=== PATIENT | male | born 1985 | race Caucasian/White ===

== ENCOUNTER 2019-06-13 19:16 | Emergency (ER) | payer OTHER ==
[~2019-06-13] VITALS: Ht 172.7 cm; Wt 104.3 kg
[2019-06-13] MEDS ORDERED: CHANTIX1 MG PO (19:29)
[2019-06-13] MEDS ORDERED: ZOFRAN ODT4 MG PO (20:49)
[2019-06-13] MEDS ORDERED: LORCET 5-325 M1 EACH PO (20:49)
[2019-06-13 21:03] VITALS: BP 148/85
== END 2019-06-13 21:04 | disposition home or self-care (01) ==
LOC: M.ERS 19:16
DX: S06.0X0A Concussion without loss of consciousness, initial encounter (principal); F17.210 Nicotine dependence, cigarettes, uncomplicated; Z88.8 Allergy status to other drugs, medicaments and biological substances; W51.XXXA Accidental striking against or bumped into by another person, initial encounter; Y93.75 Activity, martial arts; Y92.89 Other specified places as the place of occurrence of the external cause; Y99.8 Other external cause status